=== PATIENT | female | born 1985 | race African-American/Black ===

== ENCOUNTER 2018-09-16 16:48 | Emergency (ER) | payer MEDICAID ==
[~2018-09-16] VITALS: Ht 157.5 cm; Wt 87.0 kg
[2018-09-16 16:49] VITALS: BP 155/91
[2018-09-16] MEDS ORDERED: TETANUS, DIPHTHERIA, PERTUSSIS VAC/PF 0.5ML (>7YR OLD) IM ONE (21:30)
== END 2018-09-16 22:05 | disposition home or self-care (01) ==
LOC: ER 16:48
DX: S00.86XA Insect bite (nonvenomous) of other part of head, initial encounter (principal); L03.211 Cellulitis of face; W57.XXXA Bitten or stung by nonvenomous insect and other nonvenomous arthropods, initial encounter; Y93.9 Activity, unspecified; Y92.9 Unspecified place or not applicable
CPT/HCPCS: 90471; 90715; 99283

== ENCOUNTER 2019-10-05 08:26 | Emergency (ER) | payer MEDICAID ==
[~2019-10-05] VITALS: Ht 157.5 cm; Wt 100.0 kg
[2019-10-05] MEDS ORDERED: IBUPROFEN 600MG TABLET PO ONE (09:00)
[2019-10-05] MEDS ORDERED: CEPHALEXIN 250MG CAPSULE PO ONE (09:00)
[2019-10-05 09:02] VITALS: BP 154/89
== END 2019-10-05 09:32 | disposition home or self-care (01) ==
LOC: ER 08:26
DX: S80.862A Insect bite (nonvenomous), left lower leg, initial encounter (principal); L03.116 Cellulitis of left lower limb; W57.XXXA Bitten or stung by nonvenomous insect and other nonvenomous arthropods, initial encounter; Y93.9 Activity, unspecified; Y92.9 Unspecified place or not applicable
CPT/HCPCS: 99283

== ENCOUNTER 2020-08-30 07:50 | Emergency (ER) | payer MEDICAID ==
[~2020-08-30] VITALS: Ht 157.5 cm; Wt 100.0 kg
[2020-08-30 07:52] VITALS: BP 144/90
== END 2020-08-30 08:28 | disposition home or self-care (01) ==
LOC: ER 07:50
DX: T16.1XXA Foreign body in right ear, initial encounter (principal); H92.01 Otalgia, right ear; X58.XXXA Exposure to other specified factors, initial encounter; Y93.89 Activity, other specified; Y92.9 Unspecified place or not applicable
CPT/HCPCS: 99281

== ENCOUNTER 2020-11-16 06:54 | Emergency (ER) | payer MEDICAID ==
[~2020-11-16] VITALS: Ht 157.5 cm; Wt 90.0 kg
[2020-11-16] MEDS ORDERED: DIPHENHYDRAMINE 50MG CAPSULE PO ONE (07:45)
[2020-11-16] MEDS ORDERED: FAMOTIDINE 20MG TABLET PO ONE (07:45)
[2020-11-16] MEDS ORDERED: PREDNISONE 20MG TABLET PO ONE (07:45)
[2020-11-16] MEDS ORDERED: DIPH25CA83 PO (09:12)
[2020-11-16] MEDS ORDERED: VALA10002 MT (09:12)
[2020-11-16] MEDS ORDERED: FAMO-135 MT (09:12)
[2020-11-16] MEDS ORDERED: P50 MT (09:12)
[2020-11-16 09:38] VITALS: BP 128/70
== END 2020-11-16 09:39 | disposition home or self-care (01) ==
LOC: ER 07:06
DX: R22.0 Localized swelling, mass and lump, head (principal)
CPT/HCPCS: 81025; 99284; J7512; Q0163

== ENCOUNTER 2023-09-09 23:36 | Emergency (ER) | payer SELFPAY ==
[~2023-09-09] VITALS: Ht 157.5 cm; Wt 107.0 kg
[~2023-09-09 23:36] MED LIST: DIPH25CA83 PO; FAMO-135 MT; P50 MT; VALA10002 MT
[2023-09-09 23:58] VITALS: TEMP 98; O2SAT 100
[2023-09-10] MEDS ORDERED: AMOX1TAB16 MT (00:17)
[2023-09-10 00:23] VITALS: BP 170/116; PULSE 90; RESP 16
[2023-09-10] MEDS: KETOROLAC 30MG/ML VIAL IM ONE (00:23)
== END 2023-09-10 00:25 | disposition home or self-care (01) ==
LOC: ER 23:36
DX: K04.7 Periapical abscess without sinus (principal)
CPT/HCPCS: 99283; 96372; J1885

== ENCOUNTER 2024-01-17 23:45 | Emergency (ER) | payer MEDICAID ==
[~2024-01-17] VITALS: Ht 157.5 cm; Wt 109.0 kg
[~2024-01-17 23:45] MED LIST changes: +AMOX1TAB16 MT
[2024-01-17 23:50] VITALS: O2SAT 95
[2024-01-18] MEDS ORDERED: BENZ100C86 MT (00:57)
[2024-01-18 01:00] VITALS: BP 166/85; PULSE 71; RESP 18; TEMP 36.94740; O2SAT 100
== END 2024-01-18 01:00 | disposition home or self-care (01) ==
LOC: ER 23:45
DX: B34.9 Viral infection, unspecified (principal); R05.9 Cough, unspecified; Z79.624 Long term (current) use of inhibitors of nucleotide synthesis
CPT/HCPCS: 99283; 71046; Z7610 ×2